=== PATIENT | male | born 1985 | race Caucasian/White ===

== ENCOUNTER → 2019-05-28 09:15 | Outpatient (CLI) | payer BC ==
--- NOTE | 2019-05-28 10:34 | NUR ---
TIME OUT PERFORMED 1020. PATIENT, , PROCEDURE VERIFIED BY DR. KATE & CASSIE LOYD RT(R)
== END | disposition home or self-care (01) ==
LOC: D.RAD 09:15
PROVIDERS: ATTEND Orthopaedic Surgery
DX: S43.431A Superior glenoid labrum lesion of right shoulder, initial encounter (principal)

== ENCOUNTER 2019-06-21 07:10 | Day surgery (SDC) | payer BC ==
[~2019-06-21] VITALS: Ht 190.5 cm; Wt 104.3 kg
[2019-06-21 08:26] VITALS: BP 130/77; Ht 190.5 cm; Wt 104.3 kg
[2019-06-21] MEDS ORDERED: HYDROCODON-ACE1 EA10 PO (10:47)
--- NOTE | 2019-06-21 11:17 | NUR ---
CONSULTED WITH ANESTHESIA ABOUT PT HR OF 47. PT HR PRE OPERATIVELY WAS 55. ANESTHESIA BLACK VOICED "YEA ITS FINE, LONG HE DOES NOT GO BELOW 40". WILL CONTINUE TO MONITOR HR.
--- NOTE | 2019-06-21 13:07 | NUR ---
1245 IV REMOVED INSTRUCTIONS GIVEN
--- NOTE | 2019-06-21 14:17 | OP ---
PATIENT NAME: ILSA WOLFF MEDICAL RECORD: [id number] :87 [facility] DATE: SURGEON: MARY KATE KEN MD DATE OF OPERATION: 06/21/2019 PREOPERATIVE DIAGNOSIS: Rotator cuff tear of the right shoulder. PREOPERATIVE DIAGNOSES: Rotator cuff tear of the right shoulder, residual impingement. PROCEDURES: 1. Arthroscopic rotator cuff repair of the right shoulder. 2. Arthroscopic subacromial decompression with acromioplasty and bursectomy. SURGEON: Mary Kate Ken MD CLOTH PRINTING INSPECTOR: BESSY Rivas INTRAOPERATIVE COMPLICATIONS: None. SUMMARY OF PATHOLOGIC FINDINGS: The patient had a split laminar thickness tear with a substantial amount of retraction; however, it was mobilized and was easily fixed arthroscopically with 2 arthroscopic SwiveLock and FiberTape. The patient's previous decompression had a small anterior beak still hanging on the front or having regrown and therefore further more robust decompression was performed without jeopardizing stability of the anterior deltoid. OPERATIVE SUMMARY IN DETAIL: After obtaining the appropriate preoperative orthopedic surgery consent as well as anesthetic consultation, evaluation and clearance, the patient was brought to the operating room and placed on the operating table in supine position. After adequate general laryngeal mask airway was administered, the patient was placed in the left lateral decubitus position. All pressure points were well padded to include down leg peroneal pad as well as axillary roll. The patient was held firmly to the operating table using the vacuum pack suction system. Right upper extremity and shoulder were then prepped and draped in routine sterile fashion. The arm was held in the Arthrex traction boom in 30 degrees of forward flexion, 30 degrees of abduction with 10 pounds of traction laterally. Arthroscopy was established in the glenohumeral joint from the posterior portal. Anterior portal was established in the anterior safe interval. Diagnostic arthroscopy did show the patient to have the multi-laminar tear. Previously SLAP appeared to be okay. The patient did have some biceps tendinitis; however, I did not think it warranted tenodesis, just more robust decompression. At this point, a 5.0 resector was utilized to decorticate the supraspinatus tendinous footprint on the articular aspect. Again, from an articular view, two #2 FiberTapes were placed. After substantial mobilization of the inferior flap was performed and after the FiberTapes were put into place, it was possible to get the entire supraspinatus thickness over to the greater tuberosity for reapproximation. Having completed this, attention was turned to the subacromial space. Visualization of the 2 previously placed subarticular sutures were visualized and thought to be in an excellent position. The [place] tissue ablation system was utilized again to denude the residual subacromial region and released what was left of the coracoacromial ligament. A 5-0 barrel bur was then used to perform acromioplasty at the level of acromioclavicular joint. This resulted in excellent coverage. At this point, then under appropriate tension, the OPERATIVE REPORT [id number] ILSA WOLFF posterior of the 2 sutures were anchored in the posterior aspect of the greater tuberosity with a 5.5 SwiveLock from [employer]th[employer], which was very well implanted with good bone bite. The anterior one was then pulled to the appropriate tension and implanted with a 4.75 SwiveLock. This resulted in complete coverage of the supraspinatus tendinous footprint with the soft tissue of the supraspinatus tendon. Having completed this, arthroscopy portals were closed in routine interrupted fashion using 4-0 Prolene. Sterile dressings were applied. The patient was awakened and taken to the recovery room in stable condition. All final needle and sponge counts were correct. TRANSINT:[id number] Voice Confirmation ID: [id number] DOCUMENT ID: [id number] JESUS MANUEL RICHARD, MARY KATE MARIEE at 1417 CC: [id number] DICTATION DATE: 06/21/19 1052 PLANT WRAPPER: 06/21/19 1145 [facility] 06/21/[address] [address]
== END 2019-06-21 13:00 | disposition home or self-care (01) ==
LOC: D.OPS 07:10 → D.PAN 13:45
PROVIDERS: ATTEND Orthopaedic Surgery
DX: S43.421A Sprain of right rotator cuff capsule, initial encounter (principal); X58.XXXA Exposure to other specified factors, initial encounter

== ENCOUNTER → 2019-07-13 09:29 | Outpatient (CLI) | payer BC ==
[2019-06-21 08:26] VITALS: BMI 28.8
[~2019-07-13 09:29] MED LIST: HYDROCODON-ACE1 EA10 PO
== END | disposition home or self-care (01) ==
LOC: D.US 09:29
PROVIDERS: ATTEND Clinical Nurse Specialist Family Health
DX: R22.2 Localized swelling, mass and lump, trunk (principal)

== ENCOUNTER 2019-08-02 08:02 | Day surgery (SDC) | payer BC ==
[~2019-08-02] VITALS: Ht 190.5 cm; Wt 104.3 kg
[2019-08-02 08:33] VITALS: Ht 190.5 cm; Wt 104.3 kg
[2019-08-02] MEDS ORDERED: HYDROCODON-ACE1 EA10 PO (10:43)
--- NOTE | 2019-08-02 12:56 | NUR ---
1130 IV REMOVED AND PRESSURE HELD. INSTRUCTIONS GIVEN
--- NOTE | 2019-08-03 15:11 | OP ---
PATIENT NAME: ILSA WOLFF MEDICAL RECORD: [id number] :87 LOCATION:[facility] ADMISSION DATE: SURGEON: MARY KATE KEN MD DATE OF OPERATION: 08/02/2019 PREOPERATIVE DIAGNOSIS: Lipoma on upper aspect of the thoracic region. POSTOPERATIVE DIAGNOSIS: Lipoma on upper aspect of the thoracic region. PROCEDURE: Excision of lipomas times 2. SURGEON: Mary Kate Ken MD TRAINING ASSISTANT: BEBA Bonilla INTRAOPERATIVE COMPLICATIONS: None. SUMMARY OF PATHOLOGIC FINDINGS: The patient did indeed have 2 lipomas at the area that had been ultrasounded, they were relatively easily removed in their entirety. OPERATIVE SUMMARY IN DETAIL: After obtaining the appropriate preoperative orthopedic surgery consent as well as anesthetic consultation, evaluation and clearance, the patient was brought to the operating room and placed on the operating table in supine position. After general laryngeal mask airway was administered, the patient was placed in a prone position after it was well padded, axilla as well as iliac crest were well padded. The patient's upper neck and back are prepped and draped in routine sterile fashion. The area of the lipoma was palpated and then corresponding to the previous ultrasound incision was made directly over dissection, it was carried down to both lipomas. which are sitting side by side, careful excision was taken both medially, laterally, proximally and distally and then dissection was carried across the anterior surface. Each lipoma was removed and sent in its entirety for histology review. The wound was then copiously irrigated. All bleeding was stopped, it was then closed with #1 Vicryl followed by 2-0 Vicryl and skin freda. Sterile dressings were applied with a pressure dressing. The patient was then awakened and taken to the recovery room in stable condition. All final needle and sponge counts were correct. TRANSINT:[id number] Voice Confirmation ID: [id number] DOCUMENT ID: [id number] MARY KATE KEN MD at 1511 CC: [id number] DICTATION DATE: 08/02/19 1046 [employer] SOFTWARE ENGINEER: 08/02/19 1104 [facility] 08/02/19 [facility] [address] [place] [address]
== END 2019-08-02 12:00 | disposition home or self-care (01) ==
LOC: D.PAN 08:02 → D.OPS 12:30
PROVIDERS: ATTEND Orthopaedic Surgery
DX: D17.1 Benign lipomatous neoplasm of skin and subcutaneous tissue of trunk (principal)